=== PATIENT | female | born 2005 | race Caucasian/White ===

== ENCOUNTER 2023-12-19 16:34 | Outpatient (REF) | payer OTHER, SELFPAY ==
[2023-12-19 17:27] LABS: Alanine Aminotransferase* 12 U/L (4-35); Aspartate Amino Transferase* 27 U/L (12-35); Triglycerides* 83 mg/dL (40-149)
== END 2023-12-19 16:35 | disposition home or self-care (01) ==
LOC: NPINS 16:34
PROVIDERS: Visit Provider Dermatology
DX: L70.0 Acne vulgaris (principal); Z79.899 Other long term (current) drug therapy
CPT/HCPCS: 84450; 84460; 84478

== ENCOUNTER 2024-01-09 12:38 | Outpatient (CLI) | payer OTHER, SELFPAY | END 2024-01-09 12:39 | disposition home or self-care (01) | LOC: NFLDUCREF 12:38 | PROVIDERS: Visit Provider Nurse Practitioner | DX: J02.9 Acute pharyngitis, unspecified (principal) | CPT/HCPCS: 87070 ==